=== PATIENT | male | born 1990 | race Caucasian/White ===

== ENCOUNTER 2023-02-20 13:16 | Outpatient (OUT) | payer MEDICAID, SELFPAY ==
--- NOTE | 2023-02-20 13:24 | MR_ITS ---
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 Images were performed without and with Dotarem contrast. FINDINGS: CEREBRUM: No edema, hemorrhage, mass, acute infarction, or inappropriate atrophy. CEREBELLUM: No edema, hemorrhage, mass, acute infarction, or inappropriate atrophy. BRAINSTEM: No edema, hemorrhage, mass, acute infarction, or inappropriate atrophy. CSF SPACES: Ventricles, cisterns, and sulci are appropriate for age. No hydrocephalus, subarachnoid hemorrhage, or mass. SKULL: No mass or other significant visible lesion. SINUSES: Limited views demonstrate no significant mucosal thickening or fluid. ORBITS: Limited views are unremarkable. OTHER: Stable nonenhancing mass within the anterior aspect of the superior sagittal sinus, 2.8 x 1.4 x 1.4 cm. IMPRESSION: 1. Nonspecific, but stable mass versus thrombus within anterior superior sagittal sinus (2.8 x 1.4 x 1.4 cm.). No surrounding mass effect or edema. 2. Otherwise unremarkable brain. Electronically authenticated by: MELE ROSE Date: 02/21/2023 07:50
== END 2023-02-20 13:17 ==
LOC: MRI 13:19
DX: D49.6 Neoplasm of unspecified behavior of brain (principal)
CPT/HCPCS: 70553; A9575

== ENCOUNTER 2023-12-20 11:27 | Emergency (ER) | payer MEDICAID, SELFPAY ==
[2023-12-20 11:44] VITALS: BP 142/79; PULSE 82; TEMP 36.9; O2SAT 97; BMI 33.2
--- NOTE | 2023-12-20 11:50 | XR_ITS ---
The [address] [address] Patient Name: MIHIR MASTERS MRN: [id number] date: 1990 Sex: M Assigned Patient Location: ER Current Patient Location: ER Accession/Order Number: [id number] Exam Date: 12/20/2023 12:04 Report Date: 12/20/2023 12:22 At the request of: KAYCE MCKNIGHT Procedure: XR chest 1V EXAM: XR chest 1V at 1205 hours HISTORY: throat irritation , coughing up blood. COMPARISON: 11/25/2020 TECHNIQUE: AP upright portable chest x-ray FINDINGS: The heart is not enlarged and the vasculature is not distended. No acute infiltrate, effusion or pneumothorax is identified. The osseous structures are grossly intact. XR/XR chest 1V IMPRESSION: No acute infiltrate or evidence of cardiac decompensation. The overall appearance of the chest is essentially unchanged. Electronically authenticated by: RALEIGH SAGE Date: 12/20/2023 12:22
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
[2023-12-20] MEDS: ALBUTEROL SULFATE 2.5 MG/3 ML VIAL NEB IH (12:46)
[2023-12-20 12:47] VITALS: O2SAT 97
[2023-12-20 13:48] VITALS: PULSE 67; O2SAT 99
== END 2023-12-20 13:50 | disposition home or self-care (01) ==
PROVIDERS: Emergency Provider Emergency Medicine
DX: T59.811A Toxic effect of smoke, accidental (unintentional), initial encounter (principal); R05.9 Cough, unspecified
CPT/HCPCS: 71045; 94640; 99283

== ENCOUNTER 2023-12-22 20:20 | Emergency (ER) | payer MEDICAID, SELFPAY ==
[2023-12-22 20:31] VITALS: BP 143/90; PULSE 63; TEMP 36.7; O2SAT 98; BMI 32.3
--- NOTE | 2023-12-22 20:40 | ED_ITS ---
HPI - Dental/Oral General Chief complaint: Dental/Oral Stated complaint: TOOTHACHE, THINKS SEPTIC Time Seen by Provider: 12/22/23 20:29 Source: patient Mode of arrival: walk-in Limitations: no limitations History of Present Illness HPI Narrative: 33 year-old male presents to the ER with concerns of dental abscess right upper rear molar. Patient states he has an appointment Monday with the [facility] dental clinic for treatment, known broken tooth that recently became painful earlier this week. Patient tried self-medicating with Keflex prescription from his mother twice daily, noting symptoms progressing, patient with subjective fever, noticing nausea and brief abdominal pain that is since resolved and was concerned that his infection was spreading. Patient appears nontoxic in no acute distress, afebrile on arrival with mild to moderate dental pain. Location: Tooth # (1) Onset (ago): day(s) Duration: constant Severity: moderate Relieving factors: other (tylenol AM) Exacerbating factors: chewing, cold and heat Context: history of dental caries Associated symptoms: gum swelling Related Data Home Medications ?Medication ?Instructions ?Recorded ?Confirmed cephalexin 250 mg capsule 250 mg PO BID 12/22/23 12/22/23 Previous Rx's ?Medication ?Instructions ?Recorded albuterol sulfate 90 mcg/actuation 2 inh inhalation Q4H PRN shortness 12/20/23 aerosol inhaler of breath or wheezing #8.5 grams clindamycin HCl 300 mg capsule 300 mg PO TID 7 days #21 caps 12/22/23 ibuprofen 600 mg tablet 600 mg PO TID PRN pain #30 tabs 12/22/23 ondansetron HCl 4 mg tablet 4 mg PO Q6H PRN nausea and 12/22/23 vomiting #12 tabs Allergies Allergy/AdvReac Type Severity Reaction Status Date / Time zolpidem [From Ambien] Allergy Severe Verified 12/20/23 11:44 Review of Systems ROS Constitutional Reports: fever (subjectibe); Denies: chills Ears, nose, mouth, and throat Denies: throat pain, neck pain or dry mouth Cardiovascular Denies: chest pain Respiratory Denies: shortness of breath or cough Gastrointestinal Denies: abdominal pain, nausea or vomiting Genitourinary Denies: painful urination Musculoskeletal Denies: back pain or neck pain Integumentary/Breast Denies: rash Neurological Denies: headache Allergic/Immunologic Denies: hives, throat swelling or tongue swelling Exam Narrative Exam Narrative: Nurses notes reviewed and patient is noted to be non-hypoxic. General: The patient is comfortable, alert and oriented x3, well appearing, non toxic in no apparent distress. Head: Atraumatic and normocephalic. Eyes: Normal conjunctiva, no exudates. ENT: The oropharynx is normal. No pharyngeal erythema, uvular edema, tonsillar exudates, asymmetry or trismus. Uvula is midline. Mouth is normal to inspection With the exception of a pain on percussion of the tooth #1 decayed to gum line, black with gum swelling. There is no evidence of facial asymmetry , + small early abscess formation noted. Floor of the mouth is soft. No tenderness in the submental or submandibular space. No tongue elevation or deviation. T Airway is patent. Neck: The neck demonstrates normal range of motion. No meningeals signs are present. No stridor. No masses or lymphandenopathy noted. Respiratory: No acute distress, lungs are clear to auscultation, no wheezing, rhonchi, or rales noted. No stridor or retractions are noted. Cardiovascular: Regular rate and rhythm Skin: The skin exam shows no evidence of rashes GI: Abdomen nontender. non surgical Neuro: Alert and oriented x4, normal speech Lymphatic: No cervical lymphadenopathy Constitutional Vital Signs, click to edit/add: Last Vital Signs Temp 98.1 F 12/22/23 20:31 Pulse 63 12/22/23 20:31 Resp 18 12/22/23 20:31 BP 143/90 H 12/22/23 20:31 Pulse Ox 98 12/22/23 20:31 O2 Del Method Room Air 12/22/23 20:31 Course Vital Signs Vital signs: Vital Signs Temperature 98.1 F 12/22/23 20:31 Pulse Rate 63 12/22/23 20:31 Respiratory Rate 18 12/22/23 20:31 Blood Pressure 143/90 H 12/22/23 20:31 Pulse Oximetry 98 12/22/23 20:31 Oxygen Delivery Method Room Air 12/22/23 20:31 Temperature 98.1 F 12/22/23 20:31 Pulse Rate 63 12/22/23 20:31 Respiratory Rate 18 12/22/23 20:31 Blood Pressure 143/90 H 12/22/23 20:31 Pulse Oximetry 98 12/22/23 20:31 Oxygen Delivery Method Room Air 12/22/23 20:31 MDM - Dental/Oral MDM Narrative Medical decision making narrative: Patient presents with dental pain, gum swelling and evidence of early abscess formation. Recommend he stop Keflex, will start clindamycin with risks and benefits discussed. Discussed the need for food with antibiotic to limit side effects. His abdomen is nonsurgical, nontender. Recommend Motrin for pain and discomfort, Zofran for nausea. Definitive treatment with dentist on Monday. Patient thankful hide no further concerns or questions. The patient is to followup with primary care physician/ dental clinic ( monday) in next 2-3 days or to return to the emergency department should any of the signs or symptoms worsen or new symptoms develop. Patient had questions answered. The patient agrees with the following Diagnosis and Treatment plan and the patient will be discharged home. Discharge Plan Discharge Stand Alone Forms: Portal Instructions Chief Complaint: Dental/Oral Clinical Impression: Abscess, dental Patient Disposition: Home, Self-Care Time of Disposition Decision: 20:48 Condition: Good Prescriptions / Home Meds: New ondansetron HCl 4 mg tablet 4 mg PO Q6H PRN (Reason: nausea and vomiting) Qty: 12 0RF ibuprofen 600 mg tablet 600 mg PO TID PRN (Reason: pain) Qty: 30 0RF clindamycin HCl 300 mg capsule 300 mg PO TID 7 Days Qty: 21 0RF No Action albuterol sulfate 90 mcg/actuation HFA aerosol inhaler 2 inh inhalation Q4H PRN (Reason: shortness of breath or wheezing) Qty: 8.5 0RF cephalexin 250 mg capsule 250 mg PO BID Print Language: Upper Sorbian Instructions: Dental Abscess (ED) Additional Instructions: Keep your Monday appointment with [facility] dental clinic. Referrals: Physician,Non-Staff, [Primary Care Provider] - 1 week Discharge Date/Time: 12/22/23 20:53
[2023-12-22] MEDS: CLINDAMYCIN HCL 150 MG CAPSULE 300 MG PO (20:49)
[2023-12-22] MEDS: IBUPROFEN 600 MG TABLET PO (20:49)
[2023-12-22] MEDS: ONDANSETRON 4 MG RAPDIS TABLET SL (20:49)
== END 2023-12-22 20:53 | disposition home or self-care (01) ==
PROVIDERS: Emergency Provider Internal Medicine
DX: K04.7 Periapical abscess without sinus (principal)
CPT/HCPCS: 99283

== ENCOUNTER 2024-09-12 19:38 | Emergency (ER) | payer MEDICAID, SELFPAY ==
[2024-09-12 19:43] VITALS: BP 144/86; PULSE 67; TEMP 37.1; O2SAT 95; BMI 27.3
--- NOTE | 2024-09-12 19:53 | CT_ITS ---
The [address] [address] Patient Name: MIHIR MASTERS MRN: [id number] date: 1990 Sex: M Assigned Patient Location: ER Current Patient Location: [facility] Accession/Order Number: [id number] Exam Date: 09/12/2024 20:05 Report Date: 09/12/2024 21:01 At the request of: NORMA HASSAN Procedure: CT head/brain wo con EXAM: CT head/brain wo con REASON FOR EXAM: Male, 33 years, Headache. TECHNIQUE: Computed tomography of the head is performed in the axial projection from the base of the skull to the vertex. Sagittal and coronal reconstructed images are performed. Dose reduction techniques were achieved by using automated exposure control and/or adjustment of mA and/or KVP according to patient size and/or use of iterative reconstruction technique. COMPARISON: MRI 02/20/2023, CT 12/14/2022. FINDINGS: Normal soft tissues. Normal calvarium. The ventricles have normal size and configuration for patient's age. Normal brain parenchyma. Normal basal ganglia. Normal brainstem. The cerebellum is normal. Similar appearance to the soft tissue density within the anterior aspect of the superior sagittal sinus. There is no evidence for acute ischemia. There is no evidence for acute hemorrhage. There is mucosal thickening within the paranasal sinuses. CT/CT head/brain wo con IMPRESSION: No acute intracranial hemorrhage. Similar soft tissue mass within the anterior aspect of the superior sagittal sinus. Electronically authenticated by: AR BOLES Date: 09/12/2024 21:01
--- NOTE | 2024-09-12 19:54 | ED_ITS ---
HPI HPI - Head Injury General Chief complaint: Head Injury Stated complaint: HEAD INJURY 09/11/24 Time Seen by Provider: 09/12/24 19:50 Source: patient History of Present Illness HPI Narrative: Patient is a 33-year-old male who presents to the emergency department for evaluation of a head injury and not feeling well today. He states yesterday he was at work stacking boxes when he accidentally hit his right forehead on a metal pole. He did not fall to the ground or have any other associated injuries. He complains of symptoms today that developed earlier, he states he feels lightheaded, nauseous and has a posterior headache. He denies visual changes, blurred or double vision. He has not had any neck pain, peripheral paresthesias. He has had no vomiting. He is ambulatory. He denies photophobia. He has no significant history of headaches. No medications taken prior to arrival Related Data Home Medications ?Medication ?Instructions ?Recorded ?Confirmed cephalexin 250 mg capsule 250 mg PO BID 12/22/23 12/22/23 Previous Rx's ?Medication ?Instructions ?Recorded albuterol sulfate 90 mcg/actuation 2 inh inhalation Q4H PRN shortness 12/20/23 aerosol inhaler of breath or wheezing #8.5 grams clindamycin HCl 300 mg capsule 300 mg PO TID 7 days #21 caps 12/22/23 ibuprofen 600 mg tablet 600 mg PO TID PRN pain #30 tabs 12/22/23 ondansetron HCl 4 mg tablet 4 mg PO Q6H PRN nausea and 12/22/23 vomiting #12 tabs ketorolac 10 mg tablet 10 mg PO TID PRN pain #10 tabs 09/12/24 ondansetron 4 mg disintegrating 4 mg PO Q6H PRN nausea and 09/12/24 tablet vomiting #12 tabs Allergies Allergy/AdvReac Type Severity Reaction Status Date / Time zolpidem (From Ambien) Allergy Severe Verified 12/20/23 11:44 Opioid HPI Opioid Management Most Recent Pain and Opioid Data: Last Pain Scale 1 12/22/23 20:49 12/22/23 Review of Systems ROS Constitutional Denies: fever or chills Eyes Denies: change in vision Ears, nose, mouth, and throat Denies: throat pain or neck pain Respiratory Denies: shortness of breath Gastrointestinal Reports: nausea; Denies: vomiting Musculoskeletal Denies: back pain or neck pain Integumentary/Breast Denies: rash Neurological Reports: headache; Denies: numbness in extremities or weakness in extremities Hematologic/Lymphatic Denies: easy bruising or easy bleeding PFSH PFSH Social History Little interest or pleasure in doing things: not at all Feeling down, depressed, or hopeless: not at all Exam Constitutional Vital Signs, click to edit/add: Last Vital Signs Temp 98.8 F 09/12/24 19:43 Pulse 67 09/12/24 19:43 Resp 16 09/12/24 19:43 BP 144/86 H 09/12/24 19:43 Pulse Ox 95 09/12/24 19:43 O2 Del Method Room Air 09/12/24 19:43 Course Vital Signs Vital signs: Vital Signs Temperature 98.8 F 09/12/24 19:43 Pulse Rate 67 09/12/24 19:43 Respiratory Rate 16 09/12/24 19:43 Blood Pressure 144/86 H 09/12/24 19:43 Pulse Oximetry 95 09/12/24 19:43 Oxygen Delivery Method Room Air 09/12/24 19:43 Temperature 98.8 F 09/12/24 19:43 Pulse Rate 67 09/12/24 19:43 Respiratory Rate 16 09/12/24 19:43 Blood Pressure 144/86 H 09/12/24 19:43 Pulse Oximetry 95 09/12/24 19:43 Oxygen Delivery Method Room Air 09/12/24 19:43 MDM - Head Injury MDM Narrative Medical decision making narrative: CT of the brain performed showing a stable soft tissue mass in the sinus which has been thoroughly evaluated by neurology in the past and the patient has a previous MRI with contrast and of the blood vessels to rule out thrombosis, there is no acute process noted on the CT today. He has no photophobia and a benign exam. He is discharged home with Toradol and Zofran for symptoms. Clos ed head injury instructions given for home. Follow-up PCP and return to the ER if symptoms change or worsen SUPERVISED APC VISIT, PHYSICIAN ATTESTATION: Based on the medical record the care appears appropriate. ? Medical Records Attestation: I reviewed the patient's medical records. Imaging Data CT scan - head: Attestation: I have reviewed the pertinent imaging results. Radiologist's impression: ITS Impressions Head CT 09/12/24 19:53 IMPRESSION: No acute intracranial hemorrhage. Similar soft tissue mass within the anterior aspect of the superior sagittal sinus. Electronically authenticated by: AR BOLES Date: 09/12/2024 21:01 Discharge Plan Discharge Chief Complaint: Head Injury Clinical Impression: Closed head injury, Headache Patient Disposition: Home, Self-Care Time of Disposition Decision: 21:08 Condition: Good Prescriptions / Home Meds: New ketorolac 10 mg tablet 10 mg PO TID PRN (Reason: pain) Qty: 10 0RF ondansetron 4 mg tablet,disintegrating 4 mg PO Q6H PRN (Reason: nausea and vomiting) Qty: 12 0RF No Action albuterol sulfate 90 mcg/actuation HFA aerosol inhaler 2 inh inhalation Q4H PRN (Reason: shortness of breath or wheezing) Qty: 8.5 0RF cephalexin 250 mg capsule 250 mg PO BID ondansetron HCl 4 mg tablet 4 mg PO Q6H PRN (Reason: nausea and vomiting) Qty: 12 0RF ibuprofen 600 mg tablet 600 mg PO TID PRN (Reason: pain) Qty: 30 0RF clindamycin HCl 300 mg capsule 300 mg PO TID 7 Days Qty: 21 0RF Print Language: Sinhala Instructions: Head Injury (ED), General Headache (ED) Referrals: Physician,Non-Staff, MD [Physician] - 1 week
--- NOTE | 2024-09-12 19:56 | PC.NURSE ---
yesterday patient walked into metal pipe, hitting front right forehead. Patient Began having headache in the back of his head with nausea this evening. Patient denies denies any vision changes, pain in neck, or any numbness or tingling in extremities.
[2024-09-12] MEDS: ONDANSETRON 4 MG RAPDIS TABLET SL (20:00)
== END 2024-09-12 21:14 | disposition home or self-care (01) ==
PROVIDERS: Emergency Provider Emergency Medicine; PCP Nurse Practitioner Family
DX: S09.8XXA Other specified injuries of head, initial encounter (principal); W22.09XA Striking against other stationary object, initial encounter; R51.9 Headache, unspecified
CPT/HCPCS: 70450; 99284; Q0162

== ENCOUNTER 2025-08-18 07:28 | Emergency (ER) | payer SELFPAY ==
--- OUTSIDE RECORDS SUMMARY | 2024-02-28 05:15 | XMS_ITS | Continuity of Care Document ---
Author Organization [facility] Address [address] [place] [phone] Phone Care Team Providers Care Shift Supervisor Name Role Phone Donato Alfonso DMD Unavailable Unavailable Allergies, Adverse Reactions, Alerts Substance Reaction Status Criticality No Known Allergies Active No Inform ation Medications Medication Instructions Dosage Effective Dates (start - stop) Status Comments omeprazole 10 mg capsule,delayed release take 2 capsule by oral route every day before a meal 20 MG - Active hydroxyzine HCl 10 mg tablet - Active clindamycin HCl 300 mg capsule take 1 capsule by oral route every 6 hours 300 MG - No Longer Active ibuprofen 600 mg tablet take 1 tablet by oral route 3 times every day with food 600 MG - No Longer Active ondansetron [address] 2 tablet by translingual route 2 times every day on top of the tongue where they will dissolve, then swallow 8 MG - No Longer Active Percocet 10 mg-325 mg tablet take 1 tablet by oral route every 6 hours as needed 1.00 tablet - No Longer Active Procedures Procedure Date [facility] [place] Dis Feb Resin Composite 2s; Posterior 4 Resin Composite 1s; Posterior 4 Prophylaxis Adult Oral/Facial Photographic Images 024 [employer] [place] Dis Dec Oral Hygiene Instruction Topical Fluoride Varnish Application Dec Intraoral-complete Series (bw) Oral Hygiene Instruction Comp Oral Eval New/estab Patient 2023 Advance Directives Directive Yes / No Effective Date File Name No Information Encounters Encounter Description Practice Location Reason(s) For Visit Diagnoses Date Provider Providers Copied on Encounter [facility], [address] [place] [address], [id number], [place] tel:[phone] Dental Clinic fill (chief complaint) Inadequate housing utilitiesFood InsecurityUnable to obtain adequate child care supervisor due to limited financial resourcesEncounter for screening for dental disorders 4 [facility] TANVI Christyal. [address] [place] [address], [id number] , [place]. tel:[phone] [facility], [address] [place] [address], [id number], [place] tel:[phone] Dental Clinic pa (chief complaint) Encounter for screening for dental disorders 4 [facility] TANVI Christyal. [address] [place] [address], [id number] , [place]. tel:[phone] [facility], [address] [place] [address], [id number], [place] tel:[phone] Dental Clinic dn (chief complaint) Encounter for screening for dental disorders 4 [facility] TANVI Christyal. [address] [place] [address], [id number] , [place]. tel:[phone] Family History Family Member Type Diagnosis Age At Onset No Information Payers Payer name Insurance type Covered libertarian ID Authorstephensherman inderbandar(s) D Medicaid [facility] [id number] Social History Type Description Quantity Date Captured Comments Alcohol Use Details Unknown Caffeine Use Details Unknown Tobacco Use Status Ex-cigarette smoker 024 Smoking Status Former smoker Sex Male Sexual Orientation Straight or heterosexual Dec Gender Identity Male Vital Signs Date / Time: Height Weight BMI Pulse Rate Blood Pressure Temperature Respiratory Rate Body Surface Area Head Circumference Head Circ. Percentile Wt./Rylan. Percentile BMI percentile Pulse Ox Inhaled Ox 10:15 AM 64 /min 108/63 mm[Hg] 97.70 F Chief Complaint And Reason For Visit From encounter dated '02/28/2024 10:15'. fill (chief complaint) Reason For Referral Reason For Referral No Information Plan Of Treatment Date Type Action Status Goal Hep A. Due on du e Goal RLP. Due on due Goal Depression screening. Due on due Goal Tdap Vaccine. Due on 2023 due Goal Tdap. Due on due Goal Hepatitis C screening. Due o n due Goal PRAPARE ASSESSMENT. Due on J due Goal Influenza vaccine. Due on due Goal Unhealthy drug use screening . Due on due Goal Influenza vaccine. Due on due Goal Unhealthy drug use screening . Due on due Goal Tdap. Due on due Goal PRAPARE ASSESSMENT. Due on A due Goal Tdap Vaccine. Due on 2023 due Goal Depression screening. Due on due Goal RLP. Due on due Goal Hepatitis C screening. Due o n due Goal Tdap. Due on due Goal Tdap Vaccine. Due on 2023 due Goal RLP. Due on due Goal Unhealthy drug use screening . Due on due Goal Hepatitis C screening. Due o n due Goal Influenza vaccine. Due on due Goal PRAPARE ASSESSMENT. Due on A due Goal Hep A. Due on du e Goal Depression screening. Due on due Referral Ordered: Referrals: Food Offices ordered History Of Present Illness Encounter Date Complaint History Of Prese nt Illness fill pa pa dn dn Functional Status Date Functional Assessmen t No Information Instructions Date Instruction Additional Infor mation No Information Assessments Type Assessment Date assessment Inadequate housing utilities Feb assessment Food Insecurity assessment Unable to obtain nolberto quate child care supervisor due to limited financial resources Patient Care Teams Name Effective Dates (start - stop) Status Members No Information
[2025-08-18 07:32] VITALS: BP 133/94; PULSE 89; TEMP 36.8; O2SAT 98; BMI 30.3
[2025-08-18] MEDS: ORPHENADRINE 60 MG/2 ML VIAL IM (07:54)
[2025-08-18] MEDS: KETOROLAC TROMETHAMINE 30 MG/ML VIAL IM (07:55)
[2025-08-18] MEDS: PREDNISONE 20 MG TABLET 40 MG PO (07:56)
--- NOTE | 2025-08-18 08:19 | ED_ITS ---
HPI HPI - Back Pain/Injury General Chief Complaint: Back Pain/Injury Stated Complaint: BACK PAIN Time Seen by Provider: 08/18/25 07:41 Source: patient Mode of arrival: ambulance History of Present Illness HPI Narrative: The patient presented to us with back pain that started yesterday when he was carrying grocery and apparently he felt a pop in his back, the patient denies any numbness or tingling in his lower extremity he mentioned that the pain is only limited to the back and both sides Patient presented to us by the EMS he have no incontinence of urine or stool, the patient does not look in any distress while he is sleeping on his back and he is able to cross his legs with no difficulty Related Data Previous Rx's ?Medication ?Instructions ?Recorded cyclobenzaprine 10 mg tablet 10 mg PO BID PRN muscle s pasm #20 08/18/25 tabs diclofenac sodium 75 mg 75 mg PO BID PRN pain #20 ta bs 08/18/25 tablet,delayed release Allergies Allergy/AdvReac Type Severity Reaction Status Date / Time zolpidem (From Ambien) Allergy Severe Hallucinati Verified 08/18/25 07:31 ng Opioid HPI Opioid Management Most Recent Opioid Data: Last Pain Scale 5 Today, 09:35 Last MAR Pain Assessment Today, 09:35 Review of Systems ROS Status of ROS 10 or more systems reviewed and unremark able except as noted in history and below PFSH PFSH Social History Little interest or pleasure in doing things: not at all Feeling down, depressed, or hopeless: not at all Exam Narrative Exam Narrative: Nurses notes and vital signs reviewed and patient is not hypoxic. General: Well-appearing and in no apparent distress. Skin: Warm, dry, no pallor noted. No rash. Head: Normocephalic, atraumatic. Neck: Supple, non-tender. Cardiovascular: Regular Rate and Rhythm without murmur, gallop or rub. Respiratory: No accessory muscle use or respiratory distress. Lungs are clear to auscultation, no wheezing, rales or rhonchi Chest Wall: no tenderness Back: No midline thoracic or lumbar vertebral tenderness. No CVA tenderness,, the pain is mostly paraspinal at the mid to upper lumbar level Musculoskeletal: normal ROM, no calf or popliteal tenderness, no lower extremity edema/swelling GI: Abdomen is soft, non-distended. Normal bowel sounds. No masses appreciated. No tenderness to palpation. No rebound, guarding, or rigidity noted. Neurological: A&O x4. No cranial nerve dysfunction observed. No truncal ataxia. Moves all extremities. Sensation intact. Psychiatric: Cooperative and interactive. Normal mood and affect. Constitutional Vital Signs, click to edit/add: Last Vital Signs Temp 98.3 F 08/18/25 07:32 Pulse 89 08/18/25 07:32 Resp 16 08/18/25 07:32 BP 133/94 H 08/18/25 07:32 Pulse Ox 98 08/18/25 07:32 O2 Del Method Room Air 08/18/25 10:20 Course Vital Signs Vital signs: Vital Signs Temperature 98.3 F 08/18/25 07:32 Pulse Rate 89 08/18/25 07:32 Respiratory Rate 16 08/18/25 07:32 Blood Pressure 133/94 H 08/18/25 07:32 Pulse Oximetry 98 08/18/25 07:32 Oxygen Delivery Method Room Air 08/18/25 07:32 Temperature 98.3 F 08/18/25 07:32 Pulse Rate 89 08/18/25 07:32 Respiratory Rate 16 08/18/25 07:32 Blood Pressure 133/94 H 08/18/25 07:32 Pulse Oximetry 98 08/18/25 07:32 Oxygen Delivery Method Room Air 08/18/25 10:20 MDM - Back Pain/Injury MDM Narrative Medical decision making narrative: X-ray of the lumbar spine showed no acute pathology and the patient presentation showing no alarming symptoms The back spasm initially treated with Toradol and Norflex and after that the patient still was having some pain he was then provided with 1 dose of Percocet with instruction to go home and hydrate well and take the medication as prescribed He was prescribed Voltaren and Norflex The patient to follow-up with the primary care within 2 to 3 days and to come back to the ER in case of any worsening of the current symptoms or any new symptoms or concerns Discharge Plan Discharge Chief Complaint: Back Pain/Injury Clinical Impression: Back muscle spasm, Back pain Patient Disposition: Home, Self-Care Time of Disposition Decision: 10:14 Condition: Good Prescriptions / Home Meds: New cyclobenzaprine 10 mg tablet 10 mg PO BID PRN (Reason: muscle spasm) Qty: 20 0RF diclofenac sodium 75 mg tablet,delayed release (DR/EC) 75 mg PO BID PRN (Reason: pain) Qty: 20 0RF Print Language: Malay Instructions: Muscle Spasm (ED), Back Pain (ED) Referrals: [facility] [Primary Care Provider, Unknown] - 1 week Discharge Date/Time: 08/18/25 10:26
--- NOTE | 2025-08-18 08:19 | XR_ITS ---
The [address] [address] Patient Name: MIHIR MASTERS MRN: [id number] date: 1990 Sex: M Assigned Patient Location: ER Current Patient Location: ED.MAIN Accession/Order Number: [id number] Exam Date: 08/18/2025 08:28 Report Date: 08/18/2025 09:23 At the request of: YESSICA COTA MD Procedure: XR lumbar spine 2-3V LUMBAR SPINE - 3 views COMPARISON: None CLINICAL DATA: Low back pain for the past couple days, greater on the left AP, lateral lumbar and lumbosacral views were obtained. There is subtle thoracolumbar dextroscoliotic curvature. There are no acute compression fractures or displacement. The disc spaces are uniform. No significant hypertrophy is seen. The SI joints are intact and there is minor sclerosis. No paraspinal soft tissue abnormalities are seen. XR/XR lumbar spine 2-3V IMPRESSION: NO ACUTE BONY FINDINGS. Impression dictated by: Jina Alcala M.D. 08/18/2025 9:23 AM Dictation Location: [place] [address] Electronically authenticated by: [id number] Y Date: 08/18/2025 09:23
--- OUTSIDE RECORDS SUMMARY | 2025-08-18 08:20 | XMS_ITS | Clinical Summary ---
Author Organization [facility] Address [address] [place] [address] Care Team Providers Care Coke Inspector Name Role Phone Raven Suggs MD Unavailable Allergies Active AllergyReactionsCriticalityNoted WzgvFgrcepgxNluslhly98/06/2025 Medications MedicationSigDispense QuantityRefillsLast FilledStart DateEnd DateStatus omeprazole (PriLOSEC) [address] capsule Take 20 mg by mouth in the morning. Take before meals. Do not crush or chew.. Active hydrOXYzine HCl (Atarax) 25 MG tablet Take 25 mg by mouth every 8 (eight) hours if needed for itchingActive naproxen (Naprosyn) 500 MG tablet Take 500 mg by mouth in the morning and 500 mg in the evening. Take with meals. Active Social History Tobacco UseTypesPacks/DayYears UsedDateSmoking Tobacco: Never AssessedSex and Gender InformationValueDate RecordedSex Assigned at BirthNot on fileLegal Sex Male09/26/2024 4:12 PM ESTGender IdentityNot on fileSexual OrientationNot on file Last Filed Vital Signs Vital SignReadingTime TakenCommentsBlood Beqcepsv421/7804 3:30 PM EDT Vvjfk3251 3:30 PM EDTTemperature--Respiratory Disc890212/12/2024 3:30 PM EDTOxygen Jssmiqqwes90%12/12/2024 3:30 PM EDTInhaled Oxygen Concentration-- Ihjjpm49.9 kg (196 lb)12/12/2024 3:30 PM RMJSbgtpb097.3 cm (5' 9 )12/12/2024 3:30 PM EDTBody Mass Index28.9404 3:30 PM EDT Plan of Treatment Not on file Insurance * Guarantor: Brown ArmstrongAccount TypeRelation to PatientDate of PhoneBilling AddressPersonal/KxdwhmOzze40/25/[address] [address] Care Teams Team MemberRelationshipSpecialtyStart DateEnd Raven Suggs MD [address] [place] [address] Referring PhysicianFamily Medicine10/09/24
--- OUTSIDE RECORDS SUMMARY | 2025-08-18 08:20 | XMS_ITS | Clinical Summary ---
Author Organization [facility] Address [id number] [place] [address] Care Team Providers Care Corporate Tax Preparer Name Role Phone Raven Suggs METER READING CLERK-WAISTBAND SETTER Primary Care Provider + Allergies Active AllergyReactionsCriticalityNoted DateCommentsZolpidemHallucinations 09/22/2022 Medications MedicationSigDispense QuantityRefillsLast FilledStart DateEnd DateStatus hydrOXYzine (ATARAX) 25 mg tablet Take 1 tablet (25 mg total) by mouth daily as needed for anxiety. 90 tablet ctive Additional Information Patient not taking.Reported on 02/11/2025 omeprazole (PriLOSEC) 10 mg capsule Take 2 capsules (20 mg total) by mouth daily.Active verapamil SR (CALAN-SR) 120 mg CR tablet 1 tablet (120 mg total) nightly.5Active ubrogepant (UBRELVY) 50 mg tablet Take by mouth.Active Active Problems ProblemNoted DateDiagnosed DateArteriovenous exbudexnzdgy61/29/2025Smoking 2024Vaping nicotine dependence, tobacco jpclexi6101/03/20241765Gaiwdul25/01/2024 Moderate episode of recurrent major depressive nwzuwwhc84/01/2024lass 1 obesity due to excess calories without serious comorbidity with body mass index (BMI) of 30.0 to 30.9 in adult01/03/2024Gastroesophageal reflux mqrxmrm7301/03/2024 Immunizations ImmunizationAdministration DatesNext AptSUU3111/09/1990,05/15/1989,01/31/1989, 1988HiB04/06/1990MMR11/22/2000,04/06/1990OPV11/09/1990,01/31/1989, 1988 Family History Medical HistoryRelationNameCommentsDiabetesMotherDiabetesSisterRelationName StatusCommentsFatherAliveMotherAliveSisterAlive Social History Tobacco UseTypesPacks/DayYears UsedDateSmoking Tobacco: Every Day Vaping/E-cigarettesSmokeless Tobacco: Current Tobacco Cessation:Ready to Q uit: Not Asked; Counseling Given: Not Answered Alcohol UseStandard Drinks/WeekCommentsYes0 (1 standard drink = 0.6 oz pure alcohol)rareOverall Financial Resource Strain (CARDIA)AnswerDate RecordedHow hard is it for you to pay for the very basics like food, housing, medical care, and heating?Hard02/07/2024HQ-2AnswerDate RecordedTotal Pmrlz11909/26/2024PRAPARE - TransportationAnswerDate RecordedIn the past 12 months, has lack of transportation kept you from medical appointments or from getting medications? Yes02/07/2024In the past 12 months, has lack of transportation kept you from meetings, work, or from getting things needed for daily living?Yes02/07/2024 Housing InstabilityAnswerDate RecordedAre you worried or concerned that in the next two months you may not have stable housing that you own, rent or stay in as a part of a household?Yes02/07/2024hildcareAnswerDate RecordedChildcareUnknown 02/13/2019EmploymentAnswerDate LffxbowyHpwysgbtrtDymnhej92/12/2019Hunger ScreeningAnswerDate RecordedWithin the past 12 months we worried whether our food would run out before we got money to buy more.Sometimes True09/26/2024 Within the past 12 months the food we bought just didn't last and we didn't have money to get more.Sometimes True09/26/2024Sex and Gender InformationValueDate RecordedSex Assigned at BirthNot on fileLegal SrtLtfn5804/09/2015 11:46 AM EDT Gender IdentityNot on fileSexual OrientationNot on file Last Filed Vital Signs Vital SignReadingTime TakenCommentsBlood Eetwypdr408/63002/11/2025 2:00 PM EDT Tbjxx348302/11/2025 2:00 PM KJIXrvhygxuwib58.7 ??C (98.1 ??F)02/11/2025 8:45 AM EDTRespiratory Lmvx510302/11/2025 12:15 PM EDTOxygen Aozikbfggj43%02/11/2025 2:00 PM EDTInhaled Oxygen Concentration--Rxpwht64 kg (205 lb)02/11/2025 8:50 AM EDT Iqiyvw284.3 cm (5' 9 )02/11/2025 8:50 AM EDTBody Mass Index30.27002/11/2025 8:50 AM EDT Plan of Treatment Health MaintenanceDue DateLast DoneCommentsTobacco Xaowtlhcsu41/25/1989Adult BMI Follow Up Plan2006Influenza Sqjopgg1105/05/2025Depression Screening Tobacco Mxndkiwvf62dult BMI Screening DTaP,Tdap and Td Vaccines (6 - Td or Tdap)06/20/2034 06/20/2024, 11/09/1990, 05/15/1989, Additional history exists Medical Devices Not on file Insurance Care Teams Team MemberRelationshipSpecialtyStart DateEnd Date Raven Suggs, METER READING CLERK-WAISTBAND SETTER [address] [place], [place] [address] [place] [address] [facility]CP - [facility]01/03/24
[2025-08-18] MEDS: OXYCODONE HCL/ACETAMINOPHEN 5MG/325MG 1 TAB PO (09:35)
== END 2025-08-18 10:26 | disposition home or self-care (01) ==
PROVIDERS: Emergency Provider Emergency Medicine; PCP Nurse Practitioner Family
DX: M62.830 Muscle spasm of back (principal); M54.9 Dorsalgia, unspecified
CPT/HCPCS: 72100; 96372; 99284; J1885; J2360; J7512